=== PATIENT | female | born 1955 | race Caucasian/White ===

== ENCOUNTER 2025-05-10 06:19 | Emergency (ER) | payer MEDICARE ==
[2025-05-10] MEDS: fentaNYL 100 MCG/2 ML SDV NASBOTH ONE (08:18)
[2025-05-10] MEDS: Ketorolac 30 MG/ML SDV IM ONE (09:17)
== END 2025-05-10 10:14 | disposition home or self-care (01) ==
LOC: JP.ED 06:19
DX: S52.591A Other fractures of lower end of right radius, initial encounter for closed fracture (principal); K21.9 Gastro-esophageal reflux disease without esophagitis; Z79.899 Other long term (current) drug therapy; W19.XXXA Unspecified fall, initial encounter
CPT/HCPCS: 73110; 96372; 99283; J1885; J3010